=== PATIENT | male | born 1940 | race Caucasian/White ===

== ENCOUNTER 2023-10-08 08:01 | Emergency (ER) | payer OTHER, SELFPAY ==
[2023-10-08 08:02] VITALS: BP 199/93; PULSE 81; RESP 15; TEMP 36.4; O2SAT 96
--- NOTE | 2023-10-08 08:09 | ED.GENADUL_ITS ---
Discharge Plan Disposition Patient Disposition: Transfer-Acute Inpatient Care Specific Acute Inpt Facility: Other Condition: Stable Discharge Details Chief Complaint: Nk/Back Pain Clinical Impression: Abnormal finding on MRI of brain Primary Care Provider: Unknown,Unknown ED Provider: Alok Nash Home Meds and New Rx's Prescriptions: No Action No Known Home Meds HPI General Date/Time Provider Initiated Documentation: 10/08/23 08:09 . HPI Narrative: 83 year-old male presents to ED today by POV/ambulating with his with a chief complaint of [facility]- called last night at 10pm, told to present to ER for a possible lumbar back fracture after an outpatient MRI of the brain and spine that was performed for dementia. Patient denies any trauma, had a minor fall about a year ago- has endorsed some intermittent numbness to bilateral lower extremities but cannot localize a medial or lateral aspect- states its always below his knees. Quality described as mild numbness/tingling to lower extremities, no radiation to urinary or bowel changes, new falls, neck pain, fever, groin numbness. Severity is described as mild or baseline. Palliating factors include nothing attempted. Provoking factors include nothing specific. Patient not anticoagulated. Related Data Home Medications Medication Instructions Recorded Confirmed Unknown [No Known Home Meds] 10/08/23 10/08/23 Allergies Allergy/AdvReac Type Severity Reaction Status Date / Time No Known Allergies Allergy Unverified 10/08/23 10:23 General Stated Complaint: Nk/Back Pain JESUS: 3 Review of Systems All systems reviewed & are unremarkable except as noted in HPI and below Exam Narrative Exam Narrative: GENERAL APPEARANCE: Well-nourished, non-toxic, awake and alert, atraumatic, no acute distress. SKIN: Warm, pink, dry, intact, without rashes/lesions/ulcerations. HEAD: Normocephalic, atraumatic, normal hair distribution for gender/age. EYES: Pupils PERRLA, EOMs intact without nystagmus, normal conjunctiva, no exudates on lids/lashes. ENT: Nares patent, no circumoral cyanosis, no facial swelling NECK: Supple, trachea midline, painless cervical ROM. LUNGS/CHEST: Lungs CTA bilaterally, non-labored respirations, normal A/P diameter, symmetrical expansion, no chest wall deformity HEART (CV/PV): Regular rate and rhythm without murmur, no peripheral edema, no JVD. ABDOMEN: Soft, non-distended, no guarding. MSK: Normal ROM, no swelling/deformity to bilateral UEs or LEs, moving all extremities without weakness, no cyanosis, spine midline without tenderness, normal curvature. No midline spinal tenderness/crepitus/step-offs, symmetric sensation bilateral LEs, strength 5/5 bilateral LEs, no foot drop, no saddle anesthesia NEURO: Mental Status AAOx4 - alert to person, place, time, events No facial droop, no forehead involvement. Motor: No focal weakness - strength 5/5 in bilateral UEs and LEs, proximal and distal, symmetric. Sensory: sensation intact to light touch globally. Gait normal: patient ambulated without ataxia into ED room. PSYCH: euthymic, cooperative, pleasant, appropriate speech Course Vital Signs Vital signs: Vital Signs Temperature 36.4 C L 10/08/23 08:02 Pulse 81 10/08/23 08:02 Respiratory Rate 15 10/08/23 08:02 Blood Pressure 199/93 H 10/08/23 08:02 Pulse Oximetry 96 10/08/23 08:02 Temperature 36.4 C L 10/08/23 08:02 Temperature Source Temporal Artery Scan 10/08/23 08:02 Pulse 81 10/08/23 08:02 Respiratory Rate 15 10/08/23 08:02 Blood Pressure 199/93 H 10/08/23 08:02 Blood Pressure Position Sitting 10/08/23 08:02 Pulse Oximetry 96 10/08/23 08:02 Oxygen Delivery Method Room Air 10/08/23 08:02 Oxygen Flow Rate 0 10/08/23 08:02 Pain Level 0 10/08/23 08:02 Medical Decision Making This dictation utilizes [id number] dictation software and may contain unedite d grammatical errors. 83 year-old male presents to ED today by POV/ambulating with his with a chief complaint of [facility]- called last night at 10pm, told to present to ER for a possible lumbar back fracture after an outpatient MRI of the brain and spine that was performed for dementia. Patient denies any trauma, had a minor fall about a year ago- has endorsed some intermittent numbness to bilateral lower extremities but cannot localize a medial or lateral aspect- states its always below his knees. Quality described as mild numbness/tingling to lower extremities, no radiation to urinary or bowel changes, new falls, neck pain, fever, groin numbness. Severity is described as mild or baseline. Palliating factors include nothing attempted. Provoking factors include nothing specific. Patients' medical history: dementia, otherwise noncontributory. Family and social history: lives independently with his . Patient has no records at this facility, will await [facility], most recent note, MRI report. Pertinent exam findings / vital signs include No midline spinal tenderness/crepitus/step-offs, symmetric sensation bilateral LEs, strength 5/5 bilateral LEs, no foot drop, no saddle anesthesia - benign cardiopulmonary status, non-toxic. Differential / pathologies of concern include cervical spinal fracture. Diagnostic studies of: -XR C-Spine - no fracture seen but study not sensitive enough for this. -reviewed [facility] Brain - questions transverse defect of fracture of the base of the odontoid process. Interventions of: -none. ED Course/Assessment/Plan: 83-year-old male presents to the ED after getting a phone call last night [facility] with concerning critical results from incidental findings on an outpatient MRI brain without contrast performed last . They do question a transverse defect through the odontoid process of the cervical spine at the C1-C2 level, the patient denies any trauma, endorses a minor fall a year ago, he is not having any focal neurodeficits or upper extremity numbness or tingling, endorses intermittent lumbar back pain with numbness and tingling to the lower extremities below the knees only. CT capability went down here at this facility while his CT was ordered, I did perform plain films which are not ideal studies to rule out this type of fracture, I consulted with [facility] neuro[place] who agrees that he likely needs definitive rule out with a CT scan, they be happy to reconsult with any facility in the area that performs the scan but patient likely needs to be transferred and they do not have capacity to transfer this patient to [facility] for CT scan. The patient lives in [facility] so I am approaching [facility] with hopeful POV transfer in C-spine precautions. Findings not consistent with focal neurodeficit, midline vertebral neck tenderness, painful cervical range of motion. Disposition of Abnormal finding on MRI of brain. Patient verbalized understanding of the plan and return to ED criteria and engaged in shared decision making. Medical Records Medical records reviewed: Yes I reviewed the patient's medical records. Imaging Data Radiologic Study: Attestation: I personally reviewed and interpreted this imaging study as follows: Imaging: X-Ray Radiologist's impression: EXAM: XR CERVICAL SPINE COMP 4-5V CLINICAL HISTORY: outpatient MRI questions odontoid fx. TECHNIQUE: 2D digital imaging was performed. Five views were performed. COMPARISON: No exams were available for comparison FINDINGS: There are severe degenerative changes of the facet joints. This causes straightening of the normal cervical lordosis. There is bilateral neural foraminal narrowing at every level. There is severe narrowing of the C5-6 disc space. There is moderate narrowing of the C6-7 disc space. There prominent osteophytes projecting anteriorly at C5-6. No evidence of fracture. IMPRESSION: Severe degenerative changes. Quality:SDOH Health Related Social Needs: No Data to Display PFSH All Active Problems (Updated 10/08/23 @ 12:52 by ABBY Cline) Abnormal finding on MRI of brain (Acute) Social History Smoking/Tobacco Use Status: Never Smoking risk assessment performed?: Yes Alcohol Intake: never Drug use: Never Substance use type: does not use
--- NOTE | 2023-10-08 11:42 | DI.RAD_ITS ---
Exam(s) XR CERVICAL SPINE COMP 4-5V EXAM: XR CERVICAL SPINE COMP 4-5V CLINICAL HISTORY: outpatient MRI questions odontoid fx. TECHNIQUE: 2D digital imaging was performed. Five views were performed. COMPARISON: No exams were available for comparison FINDINGS: There are severe degenerative changes of the facet joints. This causes straightening of the normal c ervical lordosis. There is bilateral neural foraminal narrowing at every level. There is severe rad rowing of the C5-6 disc space. There is moderate narrowing of the C6-7 disc space. There prominent osteophytes projecting anteriorly at C5-6. No evidence of fracture. IMPRESSION: Severe degenerative changes. DATA REPOSITORY: RADIATION DOSE DELIVERED:
== END 2023-10-08 13:07 | disposition short-term general hospital (02) ==
PROVIDERS: Emergency Provider Physician Assistant
DX: R20.2 Paresthesia of skin (principal); R90.89 Other abnormal findings on diagnostic imaging of central nervous system
CPT/HCPCS: 99285; 72050